=== PATIENT | male | born 1960 | race Caucasian/White ===

== ENCOUNTER 2024-11-22 09:15 | Emergency (ER) | payer MEDICARE, OTHER, SELFPAY ==
[2024-11-22 09:20] VITALS: BP 177/93
[2024-11-22 10:00] VITALS: BP 191/90
--- NOTE | 2024-11-22 10:16 | ED.GENMED ---
History of Present Illness
General
Chief Complaint: Skin Problem
Source: patient
Exam Limitations: none
Time Seen by Provider: 11/22/24 10:09
History of Present Illness
History of Present Illness:
See MDM
Past History
Past History
ED Past Medical History: HTN and IDDM
ED Past Surgical History: None
Social History
Tobacco: Non-smoker
Alcohol: None
Phy Exam
Physical Exam
Physical Exam:
See MDM
Course
Orders/Labs/Results
Orders:
Orders
11/22/24 10:14
CT Lower Ext W/o Iv Cont Lt Urgent
Comment: possible foreign body to fat pad of 3rd MTP
Reason For Exam: distal left foot swelling and pain
11/22/24 10:16
Morphine Sulfate 4 mg IV NOW STA
11/22/24 10:25
Complete Blood Count/With Diff Urgent
Comprehensive Metabolic Panel Urgent
11/22/24 10:29
Clindamycin 600 mg/50 ml [Cleocin] 600 mg in 50 ml IV NOW
Abnormal Lab Results
11/22/24
10:25
WBC 11.9 H 10^3/uL
(4.8-10.8)
MCH 33.3 H pg
(27.0-31.0)
Abs Immat Gran (auto) 0.1 H 10^3/uL
(0-0.05)
Absolute Neuts (auto) 9.0 H 10^3/uL
(1.4-6.5)
Absolute Monos (auto) 1.4 H 10^3/uL
(0.1-0.6)
Immature Gran % 0.7 H %
(0-0.5)
Neutrophils % 75.5 H %
(42.2-75.2)
Lymphocytes % 11.4 L %
(20.5-51.1)
Monocytes % 11.3 H %
(1.7-9.3)
Glucose 331 H mg/dl
(70-99)
Total Bilirubin 1.5 H mg/dl
(0.2-1.3)
11/22/24 10:25
11/22/24 10:25
Vital Signs
Initial and Last Documented VS:
Initial Vital Signs
Temp Pulse Resp BP Pulse Ox
99 F 80 16 177/93 99
11/22/24 09:20 11/22/24 09:20 11/22/24 09:20 11/22/24 09:20 11/22/24 09:20
Last Documented Vital Signs
Temp Pulse Resp BP Pulse Ox
99 F 81 16 181/94 99
11/22/24 09:20 11/22/24 11:29 11/22/24 11:29 11/22/24 11:29 11/22/24 09:20
Procedures
Foreign Body Removal-Skin
Wound explored and foreign body removed?: Yes
Anesthesia: local and 1%lidocaine w/epinephrine
Foreign body removed using: forceps
Foreign body removed: completely
MDM/Problems Addressed
Differential Diagnosis Includes:
HPI and MDM Narrative:
64-year-old male presenting with left foot pain and swelling. This has been ongoing for the past several days. He is coming from the [place]. He went to urgent care a few days ago and was told to go to the emergency department for admission.
He refused. He came to [place] instead. On exam, patient has significant swelling and tenderness to the fat pad of his left foot around the third MTP. He has dorsal erythema noted. The area is exquisitely tender. Patient already refusing
admission. His is at bedside. They both acknowledged the risks of being discharged. He understands that this could lead to irreparable damage and possible .
Will obtain CT of the left foot to look for foreign body. Will start IV clindamycin
Physical exam
General: Mildly uncomfortable
HEENT: protecting airway
Neck: appears supple
CV: No evidence of cyanosis
Resp: No accessory muscle use
Abd: Non-distended
Extremities: Left foot erythematous and edematous. Distal extremity neurovascular intact. Swelling and tenderness noted to fat pad of left third MTP
Neuro: alert
Psych: Normal affect
Skin: Intact
Problems Addressed including Acute and Chronic Conditions affecting care:
1. Left foot infection
Acuity: acute
Prognosis: unstable
Details: Will start IV antibiotics and obtain CT looking for evidence of foreign body
Updates
CT is concerning for foreign body. After numb the area, I did remove an intact thin piece of metal. This correlates to the foreign body I saw on CT. No drainage of pus. CT does not show abscess either. I again discussed admitting for IV
antibiotics and patient understands risks which include sepsis, losing his foot and possibly
In regards to his uncontrolled diabetes, they are currently moving between houses and is glucometers is packed up. Discussed better blood pressure
Differential Diagnosis (but not limited to): Cellulitis, gout, foreign body
Testing considered: X-ray but this will miss organic material
Drug therapy (if applicable): OTC meds, please see d/c instruction regarding Rx drugs
Amount and/or Complexity of Data Reviewed
Clinical info obtained from: Patient
External data reviewed: N/A
Labs I independently reviewed (but not limited to): Leukocytosis
Radiology: The CT scan was personally and independently reviewed. In addition, official CT report reviewed.
Pulse Ox: not hypoxic
EKG independently reviewed: N/A
Coder: N/A
Critical Care: N/A
Risk of Complication:
Social Determinants of health: Good social support
Discussed with other providers: N/A
Escalation of Care includes Admit/Obs: After being observed in the Emergency Department, pt stable for discharge.
Occasional wrong word or 'sound a like' substitutions may have occurred due to the inherent limitations of voice recognition software. Read the chart carefully and recognize, using context, where substitutions have occurred.
*Critical Care Note
Total Time (30-74mins, 75-104mins- exclusive of procedures): Not Applicable
ED Attending Note
-
Portions of this chart may have been created with voice recognition software.� Occasional wrong word or��sound alike� substitutions may have occurred due to the inherent limitations of voice recognition software.
Discharge Plan
Departure
Patient Disposition: Home (Routine Discharge)
Date of Disposition: 11/22/24
Time of Disposition: 11:50
Patient with high blood pressure during this ER visit?: Yes
Discharge Problem:
Foreign body in foot, left, Cellulitis of foot, Acute hyperglycemia
Instructions: Cellulitis (Skin Infection), Adult (DC)
Prescriptions:
New
sulfamethoxazole-trimethoprim [Bactrim DS] 800-160 mg tablet
1 tab PO BID 10 Days Qty: 20 0RF
cephalexin 500 mg capsule
500 mg PO BID 10 Days Qty: 20 0RF
No Action
atenolol 100 mg Tablet
100 mg PO DAILY
Humalog U-100 Insulin 100 unit/mL Cartridge
1 sliding scale dose SC DIRECTED
insulin degludec [Tresiba U-100 Insulin] 100 unit/mL Solution
30 unit SC DAILY
insulin degludec [Tresiba U-100 Insulin] 100 unit/mL Solution
50 unit SC HS
Mounjaro 2.5 mg/0.5 mL Pen Injector
2.5 mg SC QWEEK
Rx Instructions:
for 4 weeks
Activity Restrictions/Additional Instructions:
As we discussed, I think going home is a bad idea. I do suggest that you stay overnight for IV antibiotics.
Watch for worsening signs of infection: fever over 100.5', increasing pain, red streaks around wound, swelling, or increasing drainage of pus. If any of these happen, return to ED promptly. Make sure that you take all your antibiotics as directed
and finish your prescription even if you feel better before the bottle is empty
Interventions
Interventions:
*Risk Screen - Suicide Last Done: 11/22/24 09:20
*General Assessment Last Done: 11/22/24 10:30
*Neglect/Abuse Screening Last Done: 11/22/24 09:20
*ED- Fall Risk Assessment Last Done: 11/22/24 10:30
*ED COVID-19 Vaccine History Last Done: 11/22/24 10:30
ED-Skin Assessment Last Done: 11/22/24 10:31
Discharge Date and Time
Print Language: MAORI
[2024-11-22 10:30] LABS: % Basophils 0.3 % (0-2); % Eosinophils 0.8 % (0-6); % Immature Granulocytes 0.7 % (0-0.5); % Lymphocytes 11.4 % (20.5-51.1); % Monocytes 11.3 % (1.7-9.3); % Neutrophils 75.5 % (42.2-75.2); Absolute Eosinophils 0.1 10^3/uL (0-0.7); Absolute Immature Granulocytes 0.1 10^3/uL (0-0.05); Absolute Lymphocytes 1.4 10^3/uL (1.2-3.4); Absolute Monocytes 1.4 10^3/uL (0.1-0.6); Hematocrit 44.3 % (39.0-52.0); Hemoglobin 16.1 g/dL (13.0-18.0); Mean Corp Hgb Conc. 36.3 g/dL (33.0-37.0); Mean Corpuscular Hgb 33.3 pg (27.0-31.0); Mean Corpuscular Volume 91.5 fL (80.0-94.0); Mean Platelet Volume 9.9 fL (7.4-10.4); Nucleated Red Blood Cells % 0.2 % (-); Platelet Count 202 10^3/uL (130-400); Red Blood Cell Count 4.84 10^6/uL (4.70-6.10); Red Cell Dist. Width 12.7 % (11.5-14.5); White Blood Cell Count 11.9 10^3/uL (4.8-10.8)
[2024-11-22 10:56] LABS: ALT (SGPT) 22 U/L (0-50); AST (SGOT) 22 U/L (17-59); Albumin 3.7 g/dl (3.5-5.0); Alkaline Phosphatase 68 U/L (38-126); Blood Urea Nitrogen 20 mg/dl (9-20); Calcium 8.7 mg/dl (8.4-10.2); Carbon Dioxide 26 mmol/L (22-30); Chloride 105 mmol/L (98-107); Estimated Creatinine Clearance 115 ml/min; Glucose 331 mg/dl (70-99); Potassium 4.5 mmol/L (3.5-5.1); Sodium 140 mmol/L (135-145); Total Bilirubin 1.5 mg/dl (0.2-1.3); Total Protein 6.5 g/dl (6.3-8.2); eGFR > 60.00
[2024-11-22] MEDS: MORPHINE SULFATE 4 MG IV (10:56)
[2024-11-22] MEDS: CLEOCIN 50 IV (10:57)
[2024-11-22 11:29] VITALS: BP 181/94
== END 2024-11-22 12:15 | disposition home or self-care (01) ==
LOC: EMR 09:15
PROVIDERS: EMERGENCY PHYSICIAN Student in an Organized Health Care Education/Training Program
DX: S90.852A Superficial foreign body, left foot, initial encounter (principal); L03.116 Cellulitis of left lower limb; W45.8XXA Other foreign body or object entering through skin, initial encounter; I10 Essential (primary) hypertension; E11.65 Type 2 diabetes mellitus with hyperglycemia; Z79.4 Long term (current) use of insulin
CPT/HCPCS: 96365; 96375; 99284; 73700; 80053; 85025

== ENCOUNTER 2024-11-27 12:48 | Inpatient (IN) | payer MEDICARE, OTHER, SELFPAY ==
[2024-11-27] VITALS (13 sets, daily range): BP systolic 110–175; BP diastolic 72–106; BMI 32.9; BMI 31.9
--- NOTE | 2024-11-27 10:28 | ED.GENMED ---
History of Present Illness
<Kemi Levin PA-C - Last Filed: 11/27/24 12:07>
General
Chief Complaint: Skin Problem
Source: patient, records and spouse
Exam Limitations: none
Time Seen by Provider: 11/27/24 10:13
History of Present Illness
History of Present Illness:
64yoM with a history of insulin dependent diabetes (A1c last month was 8) and hypertension presenting with his for evaluation of left foot pain and swelling. [place] and believes he got a foreign body stuck
in his foot wall walking at the beach. He developed pain, redness, and swelling to the left foot last week and was seen in the ED on 11/22/2024. CT scan of the foot showed a 5 mm in length metallic needlelike foreign body in the plantar soft
tissues of the left forefoot. This foreign body was removed at that visit. Patient refused admission and was started on a course of Keflex and Bactrim. He is presenting with persistent symptoms. He states the redness on the dorsum of his foot
seems better but the swelling at the plantar surface of his foot is worsening and now spreading to his toes. He had fevers up to 101 earlier in the week but has not had a fever in the last few days.
Past History
<Kemi Levin PA-C - Last Filed: 11/27/24 12:07>
Past History
ED Past Medical History: HTN and IDDM
ED Past Surgical History: None
Social History
Tobacco: Non-smoker
Alcohol: None
Phy Exam
<Kemi Levin PA-C - Last Filed: 11/27/24 12:07>
General Physical Exam
General Presentation: well appearing and no apparent distress
General Skin: warm and dry
General Habitus: normal
General Mental: alert
ENT Exam
ENT Exam: normocephalic
Pulmonary Exam
Pulmonary Exam: no respiratory distress
Neurological Exam
Neurological Exam: alert
[place] Coma Scale
Eye Opening: Spontaneous
Verbal Response: Oriented
Motor Response: Obeys Commands
GCS Total Score: 15
Skin Exam
Skin Exam: warm/dry and other (L foot: There is what appears to be an abscess on the plantar surface of the foot which is extending to the 3rd-4th toe. Small amount of serous drainage at the dorsal surface of the toes. +Fluctuance and tenderness. No
crepitus or pain out of proportion. 2+ DP pulse.)
Psychiatric Exam
Psychiatric Exam: normal mood/affect
Course
Jordinlt;Kemi Levin PA-C - Last Filed: 11/27/24 12:07>
Orders/Labs/Results
Orders:
Orders
11/27/24 10:26
Cefepime HCl [Maxipime] 2,000 mg IV NOW STA
11/27/24 10:35
Lactate Level [Lactic Acid] Urgent
Wound Culture [Wound/Abscess/Other Culture] Urgent
DENAE Source: Foot
Specimen Description: Left
Date Specimen was Collected: 11/27/24
Time Specimen was Collected: 10:27
11/27/24 10:36
CRP [C-Reactive Protein] Urgent
Complete Blood Count/With Diff Urgent
Comprehensive Metabolic Panel Urgent
ESR [Erythrocyte Sed Rate] Urgent
Blood Culture Q30M
DENAE Source: Blood/Venous
Specimen Description:
11/27/24 10:39
Vancomycin [Vancocin] 2,000 mg 0.9% Sodium Chloride 500 ml [Nss] 500 ml IV NOW
11/27/24 10:43
Morphine Sulfate 4 mg IV NOW STA
11/27/24 10:56
Blood Culture Q30M
DENAE Source: Blood/Venous
Specimen Description:
11/27/24 11:58
Consult Podiatry [PODIATRY CONSULT] Routine
Consulting Provider: Chel Ariza
Was physician already notified: Yes
Abnormal Lab Results
11/27/24
10:36
MCH 32.7 H pg
(27.0-31.0)
Abs Immat Gran (auto) 0.2 H 10^3/uL
(0-0.05)
Immature Gran % 1.9 H %
(0-0.5)
Potassium 5.3 H mmol/L
(3.5-5.1)
BUN 21 H mg/dl
(9-20)
Glucose 278 H mg/dl
(70-99)
C-Reactive Protein 65.70 H mg/L
(0.0-10.00)
11/27/24 10:36
11/27/24 10:36
Vital Signs
Initial and Last Documented VS:
Initial Vital Signs
Temp Pulse Resp BP Pulse Ox
98.3 F 73 16 172/89 98
11/27/24 09:00 11/27/24 09:00 11/27/24 09:00 11/27/24 09:00 11/27/24 09:00
Last Documented Vital Signs
Temp Pulse Resp BP Pulse Ox
98.3 F 73 16 175/90 99
11/27/24 09:00 11/27/24 09:00 11/27/24 09:00 11/27/24 11:00 11/27/24 11:00
<Jaun Frias, DO - Last Filed: 11/27/24 10:36>
Orders/Labs/Results
Orders:
Orders
11/27/24 10:26
Cefepime HCl [Maxipime] 2,000 mg IV NOW STA
11/27/24 10:35
Lactate Level [Lactic Acid] Urgent
Wound Culture [Wound/Abscess/Other Culture] Urgent
DENAE Source: Foot
Specimen Description: Left
Date Specimen was Collected: 11/27/24
Time Specimen was Collected: 10:27
11/27/24 10:36
CRP [C-Reactive Protein] Urgent
Complete Blood Count/With Diff Urgent
Comprehensive Metabolic Panel Urgent
ESR [Erythrocyte Sed Rate] Urgent
Blood Culture Q30M
DENAE Source: Blood/Venous
Specimen Description:
11/27/24 10:39
Vancomycin [Vancocin] 2,000 mg 0.9% Sodium Chloride 500 ml [Nss] 500 ml IV NOW
11/27/24 10:43
Morphine Sulfate 4 mg IV NOW STA
11/27/24 10:56
Blood Culture Q30M
DENAE Source: Blood/Venous
Specimen Description:
11/27/24 11:58
Consult Podiatry [PODIATRY CONSULT] Routine
Consulting Provider: Chel Ariza
Was physician already notified: Yes
Abnormal Lab Results
11/27/24
10:36
MCH 32.7 H pg
(27.0-31.0)
Abs Immat Gran (auto) 0.2 H 10^3/uL
(0-0.05)
Immature Gran % 1.9 H %
(0-0.5)
Potassium 5.3 H mmol/L
(3.5-5.1)
BUN 21 H mg/dl
(9-20)
Glucose 278 H mg/dl
(70-99)
C-Reactive Protein 65.70 H mg/L
(0.0-10.00)
11/27/24 10:36
11/27/24 10:36
Vital Signs
Initial and Last Documented VS:
Initial Vital Signs
Temp Pulse Resp BP Pulse Ox
98.3 F 73 16 172/89 98
11/27/24 09:00 11/27/24 09:00 11/27/24 09:00 11/27/24 09:00 11/27/24 09:00
Last Documented Vital Signs
Temp Pulse Resp BP Pulse Ox
98.3 F 73 16 175/90 99
11/27/24 09:00 11/27/24 09:00 11/27/24 09:00 11/27/24 11:00 11/27/24 11:00
<Kemi Levin PA-C - Last Filed: 11/27/24 12:07>
MDM/Problems Addressed
Differential Diagnosis Includes:
64yoM here with a L foot infection. Seen in the ED 5 days ago for a foreign body which was removed. Currently on Keflex/Bactrim. Here with persistent symptoms. He is hypertensive with otherwise stable vitals. He is non-toxic appearing. On exam,
there is fluctuance and discoloration to the plantar surface of the foot extending anteriorly to the 3rd-4th toe. No crepitus or pain out of proportion. Differential diagnosis includes but is not limited to: Cellulitis, abscess, diabetic foot
infection, doubt NSTI
Initial ED plan: Check septic workup including blood cultures, wound culture, ESR/CRP. Will defer repeat imaging in ED as he had a CT scan 5 days ago and may need MRI.
<Kemi Levin PA-C - Last Filed: 11/27/24 12:07>
*Critical Care Note
Total Time (30-74mins, 75-104mins- exclusive of procedures): Not Applicable
<Kemi Levin PA-C - Last Filed: 11/27/24 12:07>
Update Note
Update Note:
White count and lactate within normal limits. CRP elevated at 65. IV cefepime and vancomycin ordered. Podiatry notified and patient admitted for further management.
ED Attending Note
<Kemi Levin PA-C - Last Filed: 11/27/24 12:07>
-
Portions of this chart may have been created with voice recognition software.� Occasional wrong word or��sound alike� substitutions may have occurred due to the inherent limitations of voice recognition software.
<Jaun Frias DO - Last Filed: 11/27/24 10:36>
ED Attending Note
Patient seen and examined by attending physician: Yes
I performed the substantive portion of visit, reviewed & personally made and approve the management plan that is documented in note by myself or NATALIA.: Yes
ED Attending Note:
Seen with PA examined independently prior records noted diabetic foot infection with foreign body imaged on prior visit removed in its entirety per the ER note, recommended admission patient refused, patient presents with increased cellulitic
changes, at this point strongly believe he needs to be admitted, will start antibiotics, suspect he will require some drainage procedure
Discharge Plan
Departure
Patient Disposition: Admit
Date of Disposition: 11/27/24
Time of Disposition: 11:34
Presentation/result/management discussed w/ accepting MD/DO: Hospitalist
Discharge Problem:
Diabetic infection of left foot
Prescriptions:
No Action
atenolol 100 mg Tablet
100 mg PO DAILY
Humalog U-100 Insulin 100 unit/mL Cartridge
30 sliding scale dose SC BIDWMEAL
insulin degludec [Tresiba U-100 Insulin] 100 unit/mL Solution
35 unit SC DAILY
insulin degludec [Tresiba U-100 Insulin] 100 unit/mL Solution
50 unit SC QPM
Mounjaro 2.5 mg/0.5 mL Pen Injector
2.5 mg SC FONG
Rx Instructions:
for 4 weeks
sulfamethoxazole-trimethoprim [Bactrim DS] 800-160 mg tablet
1 tab PO BID 10 Days Qty: 20 0RF
Rx Instructions:
for 10 days starting 11/22/24
cephalexin 500 mg capsule
500 mg PO BID 10 Days Qty: 20 0RF
Rx Instructions:
for 10 days starting 11/22/24
acetaminophen [Tylenol] 325 mg Tablet
650 mg PO Q6HPRN PRN (Reason: mild pain)
Theragen Tablet
1 tab PO DAILY
Referrals:
NONE,* [Family Provider] -
Interventions
Interventions:
*Risk Screen - Suicide Last Done: 11/27/24 09:00
*General Assessment Last Done: 11/27/24 10:26
*Neglect/Abuse Screening Last Done: 11/27/24 09:00
*ED- Fall Risk Assessment Last Done: 11/27/24 10:26
*ED COVID-19 Vaccine History Last Done: 11/27/24 10:26
ED-Skin Assessment Last Done: 11/27/24 11:23
Discharge Date and Time
Print Language: FAROESE
[2024-11-27] MEDS: MORPHINE SULFATE 4 MG IV (10:47)
[2024-11-27 10:50] LABS: % Basophils 0.7 % (0-2); % Eosinophils 1.5 % (0-6); % Immature Granulocytes 1.9 % (0-0.5); % Lymphocytes 22.3 % (20.5-51.1); % Monocytes 5.8 % (1.7-9.3); % Neutrophils 67.8 % (42.2-75.2); Absolute Basophils 0.1 10^3/uL (0-0.2); Absolute Eosinophils 0.1 10^3/uL (0-0.7); Absolute Immature Granulocytes 0.2 10^3/uL (0-0.05); Absolute Lymphocytes 1.9 10^3/uL (1.2-3.4); Absolute Monocytes 0.5 10^3/uL (0.1-0.6); Absolute Neutrophils 5.7 10^3/uL (1.4-6.5); Hematocrit 44.5 % (39.0-52.0); Mean Corpuscular Hgb 32.7 pg (27.0-31.0); Mean Corpuscular Volume 90.8 fL (80.0-94.0); Mean Platelet Volume 9.6 fL (7.4-10.4); Nucleated Red Blood Cells % 0 % (-); Platelet Count 295 10^3/uL (130-400); Red Cell Dist. Width 12.8 % (11.5-14.5); White Blood Cell Count 8.4 10^3/uL (4.8-10.8)
[2024-11-27] MEDS: MAXIPIME 2000 MG IV (10:58)
[2024-11-27 11:07] LABS: ALT (SGPT) 47 U/L (0-50); AST (SGOT) 51 U/L (17-59); Albumin 3.9 g/dl (3.5-5.0); Alkaline Phosphatase 85 U/L (38-126); Blood Urea Nitrogen 21 mg/dl (9-20); Calcium 9.3 mg/dl (8.4-10.2); Carbon Dioxide 26 mmol/L (22-30); Chloride 103 mmol/L (98-107); Estimated Creatinine Clearance 102 ml/min; Glucose 278 mg/dl (70-99); Potassium 5.3 mmol/L (3.5-5.1); Sodium 138 mmol/L (135-145); Total Bilirubin 0.9 mg/dl (0.2-1.3); Total Protein 6.9 g/dl (6.3-8.2); eGFR > 60.00
[2024-11-27 11:12] LABS: Lactic Acid 1.5 mmol/L (0.7-2.0)
[2024-11-27] MEDS: VANCOCIN 540 MG IV (11:12)
--- NOTE | 2024-11-27 12:05 | HPS.HSE ---
Family Physician
-
Family Physician: * NONE
Chief Complaint
-
left foot wound infection
History of Present Illness
64yoM with a history of insulin dependent diabetes and hypertension presenting with his for evaluation of left foot pain and swelling. [place] was [place] his [place] house about [place] days ago and believes he got a foreign body stuck in his foot wall
walking at the beach. He developed pain, redness, and swelling to the left foot last week and was seen in the ED on 11/22/2024. CT scan of the foot showed a 5 mm in length metallic needlelike foreign body in the plantar soft tissues of the left
forefoot. This foreign body was removed at that visit. Patient refused admission and was started on a course of Keflex and Bactrim. patient stated he had a temp of 101 before Saturday. redness, swelling and pain got worse despite on oral abx.
denied BEAULIEU,dizzy or syncope. denied chills, chest pain, sob. denied abdominal pain,n,v,d. denied dysuria or hematuria. He is presenting with persistent symptoms.
Patient received Vanco, cefepime, morphine in the ER. Blood cultures and wound culture sent from
Medical History
Past Medical History
Past Medical History: Reports Other
Additional Past Medical History:
DM
HTN
Past Surgical History: Reports None
Social History
Tobacco: Non-smoker
Drug: None
Personal:
Living: With Family
Family History
Family History: Not pertinent
Allergies / Home Medications
Allergies reflects when Allergies were last updated in [employer].
Home Medications with original date entered in [employer]
Allergy/Medication List:
Allergies
Allergy/AdvReac Type Severity Reaction Status Date / Time
No Known Allergies Allergy Verified 11/27/24 09:00
Home Medications
atenolol 100 mg tablet 100 mg PO DAILY 11/22/24
cephalexin 500 mg capsule 500 mg PO BID 10 days #20 caps 11/22/24
insulin degludec 100 unit/mL subcutaneous solution (Tresiba U-100 Insulin) 35 unit SC DAILY 11/22/24
insulin degludec 100 unit/mL subcutaneous solution (Tresiba U-100 Insulin) 50 unit SC QPM 11/22/24
insulin lispro 100 unit/mL subcutaneous cartridge (Humalog U-100 Insulin) 30 sliding scale dose SC BIDWMEAL 11/22/24
sulfamethoxazole 800 mg-trimethoprim 160 mg tablet (Bactrim DS) 1 tab PO BID 10 days #20 tabs 11/22/24
tirzepatide 2.5 mg/0.5 mL subcutaneous pen injector (Mounjaro) 2.5 mg SC FONG 11/22/24
acetaminophen 325 mg tablet (Tylenol) 650 mg PO Q6HPRN PRN mild pain 11/27/24
therapeutic multivitamin 1 tab PO DAILY 11/27/24
Review of Systems
-
Constitutional: Reports No Symptoms
EENT: Reports No Symptoms
Respiratory: Reports No Symptoms
Cardiac: Reports No Symptoms
Abdomen/GI: Reports No Symptoms
: Reports No Symptoms
Musculoskeletal: Reports No Symptoms
Skin: Reports Other ( foot: There is what appears to be an abscess on the plantar surface of the foot which is extending to the 3rd-4th toe. Small amount of serous drainage at the dorsal surface of the toes)
Neurological: Reports No Symptoms
Endocrine: Reports No Symptoms
Hematologic/Lymphatic: Reports No Symptoms
Psych: Reports No Symptoms
Physical Exam
Vital Signs
Vital Signs
Temp Pulse Resp BP Pulse Ox
98.3 F 73 16 175/90 99
11/27/24 09:00 11/27/24 09:00 11/27/24 09:00 11/27/24 11:00 11/27/24 11:00
Physical Exam
General: Well Developed, Well Nourished and No Apparent Distress
HEENT: NormoCephalic, Moist mucous membranes and Atraumatic
Respiratory: Clear
Cardiac: S1/S2 and Regular Rhythm; No Murmur or Rub
GI: Soft, Non Tender, Non Distended and Normal Bowel Sounds; No Organomegaly
Rectal: Deferred by Provider
Musculoskeletal: No Clubbing, No Cyanosis and No Edema
Skin: Rash and Other ( abscess on the plantar surface of the foot which is extending to the 3rd-4th toe. Small amount of serous drainage at the dorsal surface of the toes)
Neuro: AO x 3 and Nonfocal/grossly intact
Psych: Calm
Laboratory Results
-
11/27/24 10:36
11/27/24 10:36
Laboratory Results
Lactic Acid 1.5 mmol/L (0.7-2.0) 11/27/24 10:35
Total Bilirubin 0.9 mg/dl (0.2-1.3) 11/27/24 10:36
AST 51 U/L (17-59) 11/27/24 10:36
ALT 47 U/L (0-50) 11/27/24 10:36
Alkaline Phosphatase 85 U/L (38-126) 11/27/24 10:36
Data Reviewed
-
CT Scan: Report Reviewed by me
Lab Data: Labs Reviewed by me
Impression/Plan
-
#diabetic foot infection
-failed oral abx
- Zosyn and vanco continued
-dilaudid prn for pain
-Tylenol prn for fever and pain
-blood and wound culture sent from Er
- Lower extremity CT with impression of Left forefoot foreign body as described above. Associated severe soft tissue edema.
#IDDM with hyperglycemia
-blood sugar 278
Tresiba continued
-CHO diet
- Sliding scale
#hyperkalemia likely due to Bactrim/elevated blood sugar
- K 5.3
- Continue to monitor
# Essential hypertension
- Atenolol continued
# DVT prophylaxis
- Lovenox subcu
# CODE STATUS
- Full code
[2024-11-27 12:16] LABS: Erythrocyte Sed Rate 36 mm/hour (0-20)
--- NOTE | 2024-11-27 12:29 | W.PN.UPDATE ---
Update Note
Progress Note Update
This is an addendum to the H&P written by Antonette Mckee on 11/27/2024.� Patient seen and examined independently with PROJECT CONSTRUCTION MANAGER.
64-year-old male past medical history of diabetes, hypertension, presenting for left foot pain and swelling.� 10 days ago had foreign body stuck in his foot while walking on beach.� Came to the emergency room on 11/[address] of the foot that
showed 5 mm metallic needlelike foreign body in the plantar surface of the left forefoot which was removed.� He refused admission at that time and treated with Keflex/Bactrim.
Fever 101 earlier in the week.
Blood pressure 170s.� Afebrile here.� Labs show potassium 5.3.� Glucose of 278.� CRP of 65.
Patient with cellulitis of the foot originating from foreign body puncture site on the plantar surface of the left foot with associated serosanguineous filled fluid collection.� Wound culture pending, Blood cultures pending.� Vancomycin/Zosyn.�
Podiatry consulted for potential debridement.
Also with hyperglycemia secondary to infection.� Continue home insulin regimen with sliding scale.
Hyperkalemia secondary to Bactrim.� Stop Bactrim.
[2024-11-27] MEDS: ZOSYN 50 IV ×3 (13:31→23:25)
[2024-11-27 13:38] LABS: Glucose - Point of Care 139 mg/dl (70-99)
--- NOTE | 2024-11-27 13:41 | PHA.VAN.IN ---
Assessment
- Assessment
Renal Function: Appears similar to baseline
Concomitant Antimicrobials: piperacillin/tazobactam
AUC Dosing Plan
- Dosing Variables
Dosing Weight (kg): 104
Dosing CrCl (ml/min): 102
Vd coefficient (L/kg): 0.7
- Empiric Dosing
Initial / Loading Dose: 2000mg - 11/27 11:12
Maintenance Regimen: Vanc 1500mg Q12H starting 11/28 0600
Estimated AUC (mcg*h/mL): 494
Estimated Peak (mcg*h/mL): 31.4
Estimated Trough (mcg/ml): 12.3
Estimated Half Life (H): 7.8
- Monitoring
No levels ordered at this time: consider levels in next few days
MRSA Screen: Ordered per protocol
Pharmacokinetics Vancomycin I
- -
Patient Age: 64
Patient Sex: Male
Vancomycin Day #: 1
Indication: Skin And Soft Tissue
Requesting Provider: John Mckee
Pertinent Antimicrobial Allergies:
NKDA
Height / Weight:
Height 5 ft 11 in
Actual Weight 103.827 kg
Pertinent Past Medical History: BMI ~32, DM
- Vital Signs / Lab Results
Temp Pulse Resp BP Pulse Ox
97.8 F 72 16 172/102 98
11/27/24 13:32 11/27/24 13:32 11/27/24 13:32 11/27/24 13:32 11/27/24 13:32
Lab Results - Hematology
11/27/24
10:36
WBC 8.4
Lab Results - Chemistry
11/27/24
10:36
BUN 21 H
Creatinine 0.9
Estimated Creat Clear 102
Albumin 3.9
11/27/24
10:35
Lactic Acid 1.5
Microbiology Results
11/27/24 10:35 Gram Stain - Preliminary
Foot - Left
[2024-11-27 16:33] LABS: Glucose - Point of Care 155 mg/dl (70-99)
--- NOTE | 2024-11-27 16:34 | CM ---
Patient seen at bedside
DX: Diabetic L foot infection
He was at his beach house about 10 days ago and believes he got a foreign body stuck in his foot wall walking at the beach.
PMH: history of insulin dependent diabetes and hypertension
IA completed
Lives in a multi-story home with Arm[place], no steps to enter, flight to bedroom/bathroom
PLOF: independent, does not use assistive device
Denies DME
Denies VN/Rehab
PCP: Rubén Florian [place], [place] - [phone]
Pharmacy: [facility]
PLAN: Home, currently no needs, CM to continue to follow
[2024-11-27] MEDS: NOVOLOG FLEXPEN-LOW RESISTANCE SC (16:37)
[2024-11-27] MEDS: NOVOLOG FLEXPEN SC (16:38)
--- NOTE | 2024-11-27 16:50 | CON.MD ---
Consultation - Medical
-
Consult request 11/27/2024 @ 1157a
Requested by Hospitalist, Kemi Levin
Consult performed by Dr Chel Ariza 11/27/24 @ 3:45p
CC / HPI / ROS
-
CC: Pain left foot
HPI: This is a 64-year-old male with past medical history of diabetes, hypertension, presenting for left foot pain and swelling.� 10 days ago had foreign body stuck in his foot while walking on beach.� Came to the emergency room on 11/[address]
of the foot that showed 5 mm metallic needlelike foreign body in the plantar surface of the left forefoot which was successfully removed.� He refused admission at that time and was DC home with Keflex/Bactrim. He states over the last week pain has
worsened and he is unable to walk on his left foot. He has noted fever of 101 earlier in the week and has not been able to eat much this week.
Past Medical History
Past Medical History: Reports Other
Additional Past Medical History:
DM
HTN
Past Surgical History: Reports None
Social History
Tobacco: Non-smoker
Drug: None
+admits to ETOH
Personal:
Living: With Family
Family History
Family History: Not pertinent
Allergies / Home Medications
Allergies reflects when Allergies were last updated in [facility].
Home Medications with original date entered in [facility]
Allergy/Medication List:
Allergies
Allergy/AdvReac Type Severity Reaction Status Date / Time
No Known Allergies Allergy Verified 11/27/24 09:00
Home Medications
atenolol 100 mg tablet 100 mg PO DAILY 11/22/24
cephalexin 500 mg capsule 500 mg PO BID 10 days #20 caps 11/22/24
insulin degludec 100 unit/mL subcutaneous solution (Tresiba U-100 Insulin) 35 unit SC DAILY 11/22/24
insulin degludec 100 unit/mL subcutaneous solution (Tresiba U-100 Insulin) 50 unit SC QPM 11/22/24
insulin lispro 100 unit/mL subcutaneous cartridge (Humalog U-100 Insulin) 30 sliding scale dose SC BIDWMEAL 11/22/24
sulfamethoxazole 800 mg-trimethoprim 160 mg tablet (Bactrim DS) 1 tab PO BID 10 days #20 tabs 11/22/24
tirzepatide 2.5 mg/0.5 mL subcutaneous pen injector (Mounjaro) 2.5 mg SC FONG 11/22/24
acetaminophen 325 mg tablet (Tylenol) 650 mg PO Q6HPRN PRN mild pain 11/27/24
therapeutic multivitamin 1 tab PO DAILY 11/27/24
Review of Systems:
Constitutional: loss of apetite
EENT: Reports No Symptoms
Respiratory: Reports No Symptoms
Cardiac: Reports No Symptoms
Abdomen/GI: Reports No Symptoms
: Reports No Symptoms
Musculoskeletal: Reports No Symptoms, other than cc
Skin:Negative other than CC
Neurological: Reports No Symptoms
Endocrine: Reports No Symptoms
Hematologic/Lymphatic: Reports No Symptoms
Psych: Reports No Symptoms
Vital Signs / Labs
-
Vital Signs and Labs:
Temp Pulse Resp BP Pulse Ox
98.2 F 71 16 164/86 97
11/27/24 15:24 11/27/24 15:24 11/27/24 15:24 11/27/24 15:24 11/27/24 15:24
11/27/24 10:36
11/27/24 10:36
11/27/24 11/27/24 11/27/24
10:36 13:37 16:32
MCH 32.7 H
Abs Immat Gran (auto) 0.2 H
Immature Gran % 1.9 H
ESR 36 H
Potassium 5.3 H
BUN 21 H
Glucose 278 H
C-Reactive Protein 65.70 H
POC Glucose 139 H 155 H
No xray to compare, CT 11/22/24 demonstrates no abscess or OM, there was a metallic FB noted
Physical Exam
Vital Signs
Vital Signs
Temp Pulse Resp BP Pulse Ox
98.2 F 71 16 164/86 97
11/27/24 15:24 11/27/24 15:24 11/27/24 15:24 11/27/24 15:24 11/27/24 15:24
Physical Exam
General: Alert and awake in NAD
Other/LE focused: Decreased but palpable DPA and [employer] LLE, Intact protective sensation, Large plantar abscess to the left foot that extends from midfoot to the base of the 2nd and 3rd toes. Extreme pain and tenderness is noted to the forefoot.
Cellulitis to the left forefoot/toes
Assessemnt/Plan
-
1-DM2 with Abscess left foot - Needs urgent I&D. I incised and SHARPLY, EXCISIONALLY debrided the superficial abscess to the left forefoot to the level of the DERMIS with SCALPEL and dissecting scissors. The entrance wound of the FB is seen and
there is fullness and tenderness with extreme pain to the forefoot to the 2nd and 3rd toes and secondary wounds noted in the area of the base of the toes as result of pressure and abscess. Will add to OR schedule, NPO now.
Will obtain XRAY
2-Cellulitis left foot- IV abt, ID following
3-H/O FB -metallic left foot, he does not know tetanus status. Recommend tetanus
[2024-11-27] MEDS: LOVENOX 40 MG SC (17:46)
--- NOTE | 2024-11-27 20:30 | PTCARENOTE ---
Pt brought down for Xray of L foot and then transferred straight to OR.
--- NOTE | 2024-11-27 22:10 | W.SUR.POST ---
Surgical Immediate Post Op
Note
Pre Op Diagnosis: abscess left foot
Post Op Diagnosis:
abscess left foot
Procedure Performed:
I&D left foot
Primary Surgeon: Emmanuel
Anesthesia: IV sed w/local block 20cc 1% Lido plain and 15cc 0.5% Marcaine pl
Estimated Blood Loss: 15mL
Fluids: n/a
Drains/Shunts: n/a
Specimens/Cultures: wound cx left foot
Doppler/Duplex/Angio (Y/N): N
Complications: None
Operative Findings: SQ abscess with new wounds to the plantar lateral aspects of the left toes that track to the original entrance of the foreign body (metal) Purulence in these areas near the toes only fascia, subfascia/muscle layers explored and
noted to be without purulence
[2024-11-27 22:14] LABS: Glucose - Point of Care 106 mg/dl (70-99)
[2024-11-28] VITALS (10 sets, daily range): BP systolic 142–187; BP diastolic 66–101
[2024-11-28] MEDS: ZOSYN 50 IV ×4 (05:12→23:03)
[2024-11-28] MEDS: VANCOCIN 530 MG IV ×2 (06:00→18:03)
[2024-11-28 07:16] LABS: Blood Urea Nitrogen 18 mg/dl (9-20); Calcium 8.5 mg/dl (8.4-10.2); Carbon Dioxide 25 mmol/L (22-30); Chloride 107 mmol/L (98-107); Estimated Creatinine Clearance 100 ml/min; Glucose 142 mg/dl (70-99); Potassium 4.4 mmol/L (3.5-5.1); Sodium 140 mmol/L (135-145); eGFR > 60.00
[2024-11-28 07:38] LABS: Glucose - Point of Care 133 mg/dl (70-99)
[2024-11-28] MEDS: NOVOLOG FLEXPEN-LOW RESISTANCE SC ×3 (07:40→17:30)
[2024-11-28] MEDS: THERAGRAN 1 TABLET PO (07:43)
[2024-11-28] MEDS: TENORMIN 100 MG PO (07:43)
[2024-11-28] MEDS: LANTUS 0.3 UNITS SC (08:52)
[2024-11-28] MEDS: NOVOLOG FLEXPEN 30 UNITS SC (08:52)
--- NOTE | 2024-11-28 09:06 | PHA.VAN.FU ---
Vancomycin Assessment / Plan
- Assessment
Renal Function: Stable
WBC's are: Stable
In the past 24 hrs, patient has been: Afebrile
Concomitant Antimicrobials: pip/tazo
- Dosing Plan
Continue: vancomycin 1500 mg q12h - first dose 11/28 0600 after 2gm LD 11/27
- Monitoring Plan
No level(s) ordered at this time: consider levels when pt nears steady state
- Follow Up
Pharmacy will continue to follow.
Vancomycin Follow UP
- -
Patient Age: 64
Patient Sex: Male
Vancomycin Day #: 2
Indication: Skin And Soft Tissue
Requesting Provider: John Mckee
Pertinent Antimicrobial Allergies:
NKDA
Height / Weight:
Height 5 ft 11 in
Actual Weight 103.827 kg
Pertinent Past Medical History: BMI ~32, DM
- Vital Signs / Lab Results
Temp Pulse Resp BP Pulse Ox
98.5 F 74 18 170/95 97
11/28/24 07:05 11/28/24 07:05 11/28/24 07:05 11/28/24 07:05 11/28/24 07:05
Lab Results - Hematology
11/27/24
10:36
WBC 8.4
Lab Results - Chemistry
11/27/24 11/28/24
10:36 06:26
BUN 21 H 18
Creatinine 0.9 0.9
Estimated Creat Clear 102 100
Albumin 3.9
11/27/24
10:35
Lactic Acid 1.5
Microbiology Results
11/27/24 21:30 Fungal Culture - Preliminary
Foot - Left Culture in progress.
Positive cultures are reported as soon as detected.
Final report to follow in four to five weeks.
11/27/24 10:35 Gram Stain - Preliminary
Foot - Left
[2024-11-28 10:35] LABS: Glycohemoglobin (HgbA1c) 8.4 % (4.0-5.6)
--- NOTE | 2024-11-28 10:53 | W.PN.HOSP.TC ---
Addendum entered and electronically signed by Parish Dumont DO 11/28/24 13:46:
correction, Tdap ordered.
Original Note:
Today's Communication/Plan
-
ID consult
LIBBY/ultrasound lower extremities
Tetanus
Assessment / Plan
Assessment / Plan
Gen-AAOx3, NAD
HEENT-NC, AT, anicteric, clear oral mm
Neck-supple
CV-reg, no M, +S1/S2
Lungs-clear B/L
Abd-soft, NT, ND
Ext-no edema
Musculoskeletal-no cyanosis, clubbing
Skin-warm and dry
Neuro-grossly non-focal
Psych-calm, cooperative
Left foot abscess/diabetic infection -due to foreign body, which was removed during initial ER visit 11/22. Abscess drained by podiatry 11/27 evening. Wound culture preliminary shows Staphylococcus aureus.
On broad-spectrum antibiotics. Consult ID. Foot x-ray no longer shows foreign bodies.
DTaP ordered.
DM2 with hyperglycemia -hemoglobin A1c pending. Glucose 142 this morning. At home he takes Tresiba 30 units in the morning, 50 units in the evening. Humalog 30 units with breakfast and dinner. Also on Mounjaro 2.5 mg subcu every Saturday.
Unclear why he does not use insulin with lunch. Monitor on current regimen and can add lunchtime insulin if needed.
Hyperkalemia -present on admission, resolved.
Essential hypertension -continue atenolol.
Obesity due to excess calories
Full code
Anticipated Discharge: > 48 hours
Subjective/Interval History
-
Date of Service: November 28, 2024
Patient seen and examined. No complaints.
Objective Data
-
Labs:
Laboratory Results
11/28/24
06:26
Sodium 140
Potassium 4.4
Chloride 107
Carbon Dioxide 25
BUN 18
Creatinine 0.9
Glucose 142 H
Calcium 8.5
Vital Signs:
Vital Signs
Temp Pulse Resp BP Pulse Ox
98.5 F 74 18 170/95 97
11/28/24 07:05 11/28/24 07:05 11/28/24 07:05 11/28/24 07:05 11/28/24 07:05
I&O
11/27/24 11/28/24 11/29/24
06:59 06:59 06:59
Intake Total 720 / 720
Balance 720 / 720
Review of Systems
-
History Source: Patient
All other systems: Reviewed and negative
[2024-11-28 11:48] LABS: Glucose - Point of Care 66 mg/dl (70-99)
[2024-11-28] MEDS: ADACEL 0.5 ML IM (12:07)
[2024-11-28 12:09] LABS: Glucose - Point of Care 77 mg/dl (70-99)
--- NOTE | 2024-11-28 12:32 | CON.ID ---
Consultation
-
Date/Time Consultation Requested: 11/28/2024 1038
Date/Time Consultation Performed: 11/28/2024 1146
Requesting Provider: Dr. Dumont
Performing Provider: Dr. Navarro
Reason for Consultation: Left foot infection/abscess
Chief Complaint / Past History
History of Present Illness
Bhaskar Tanner is a 64-year-old man with a significant past medical history of DM being evaluated at the request of Dr. Dumont in regards to left foot infection. History is obtained from chart review, along with patient interview.
Patient reports that he [place] was [place], and while there he developed swelling and pain, along with erythema. He presented to the emergency room. [facility] on 11/22, and workup revealed the presence of a 5 mm foreign body
in the plantar area left foot (around the fat pad of the third MTP area). The 'needlelike' object was removed, and given the pain and swelling admission was advised which he refused. He was discharged on Bactrim and Keflex.
Despite antibiotic therapy, the foot continued to remain erythematous, with increasing pain, and the patient finally came back to the emergency room for further evaluation. At this point in time a small amount of serous drainage was noticed, and
the patient had fluctuance in ongoing tenderness. Podiatry was consulted and the patient was taken to the OR last evening for I&D. IntraOp notes indicate a subcutaneous abscess with extension to the plantar area where the foreign body was
previously removed.
The patient has been started on empiric antibiotics, and Infectious Diseases is asked to comment on further management.
Past History
Additional Past Medical History:
DM
HTN
Additional Past Surgical History:
Jaw surgery
Allergy History:
No Known Allergies Allergy (Verified 11/27/24 09:00)
Medications Reviewed: Yes
Current Antibiotics:
Vanco
Zosyn
Social History
Alcohol: Daily
Drug: None
Personal:
Living: With Family
Employment: Retired
Family History
Family History: Not Pertinent
Review of Systems
Vital Signs
Temp Pulse Resp BP Pulse Ox
98.7 F 73 18 166/87 98
11/28/24 11:05 11/28/24 11:05 11/28/24 11:05 11/28/24 11:05 11/28/24 11:05
Physical Exam
Physical Exam
Constitutional: No Acute Distress, Comfortable and Non-toxic
Eyes: No Conjunctival Hemorrhage and Sclera Anicteric
Oral: No Thrush and No Ulcers
Cardiovascular: S1/S2; Negative S3/S4
Pulmonary: Non Labored
Gastrointestinal: Soft and Non Tender
Extremities: Edema (LLE; 2+) and Erythema (LLE); Negative Calf Swelling
Wound: Other (Left foot dressed; moderate bloody strikethrough)
Neurological: Awake and Alert
Psychological: Calm
.
Lab / Diagnostic Study Results
11/27/24 10:36
11/28/24 06:26
Abs Immat Gran (auto) 0.2 10^3/uL (0-0.05) H 11/27/24 10:36
Absolute Neuts (auto) 5.7 10^3/uL (1.4-6.5) 11/27/24 10:36
Absolute Lymphs (auto) 1.9 10^3/uL (1.2-3.4) 11/27/24 10:36
Absolute Monos (auto) 0.5 10^3/uL (0.1-0.6) 11/27/24 10:36
Absolute Basos (auto) 0.1 10^3/uL (0-0.2) 11/27/24 10:36
Immature Gran % 1.9 % (0-0.5) H 11/27/24 10:36
Neutrophils % 67.8 % (42.2-75.2) 11/27/24 10:36
Lymphocytes % 22.3 % (20.5-51.1) 11/27/24 10:36
Monocytes % 5.8 % (1.7-9.3) 11/27/24 10:36
Eosinophils % 1.5 % (0-6) 11/27/24 10:36
Basophils % 0.7 % (0-2) 11/27/24 10:36
ESR 36 mm/hour (0-20) H 11/27/24 10:36
Lactic Acid 1.5 mmol/L (0.7-2.0) 11/27/24 10:35
C-Reactive Protein 65.70 mg/L (0.0-10.00) H 11/27/24 10:36
Microbiology Results
Micro:
11/27/24 10:56 Blood Culture - Preliminary
Blood/Venous No Growth in 24 hours- Final report to follow
11/27/24 10:36 Blood Culture - Preliminary
Blood/Venous No Growth in 24 hours- Final report to follow
11/27/24 10:35 Wound Culture - Preliminary
Foot - Left Staphylococcus aureus
Gram Stain - Preliminary
11/27/24 21:30 Fungal Culture - Preliminary
Foot - Left Culture in progress.
Positive cultures are reported as soon as detected.
Final report to follow in four to five weeks.
11/27/24 21:33 Wound Culture - Pending
Foot - Left Gram Stain - Pending
11/27/24 15:23 MRSA Screen - Pending
Nose
Assessment / Plan
Left foot abscess
Recent removal of left foot foreign body
DM
Elevated CRP
Hx HTN
Recommendations:
Wound cultures reveal presumptive Staph aureus, although not finalized as of yet.
Continue with empiric vancomycin and Zosyn.
Follow Vanco levels closely to prevent nephrotoxicity.
Continue with local care to the incisional area.
Lower extremity elevation to facilitate lymphatic drainage.
Monitor white count temperature curve
[2024-11-28 14:11] LABS: Glucose - Point of Care 118 mg/dl (70-99)
[2024-11-28 16:19] LABS: Glucose - Point of Care 157 mg/dl (70-99)
--- NOTE | 2024-11-28 16:27 | W.PN.POD ---
Today's Communication
Today's Communication
Abscess left foot S/P I&D -POD #1, packin removed from plantar wounds- there is bloody drainage only, no odor or purulence. Foot redressed.
Arterial study pending.
IV abt - per ID, Cx + S. Aureus, sensitivities pending
WBAT in forefoot offloaded shoe
Will follow until DC
Assessment / Plan
-
DM2 with history of hyperglycemia
DM2 with diabetic foot infection
H/O Foreign body left foot
Abscess left foot S/P I&D -POD #1
Subjective
Chief Complaint
Diabetic foot infection left foot POD #1 S/P I&D
Subjective
Pt states foot wrapping machine tender to walk on, feels swollen. Denies F/C/N/V or malaise
Objective
Temp Pulse Resp BP Pulse Ox
98.1 F 73 18 166/82 98
11/28/24 15:05 11/28/24 15:05 11/28/24 15:05 11/28/24 15:05 11/28/24 15:05
11/27/24 10:36
11/28/24 06:26
Vital Signs and Lab results were reviewed.
Inspection: Cellulitis (improved to toes and forefoot) and Inflammation (edema again noted in the area of the left forefoot)
Review of Systems
Review of Systems
Review of Systems: No Fever, No Chills, No Nausea, No Diarrhea and No Skin Rash
Physical Exam
Physical Exam
General: No Apparent Distress, Comfortable and Conversant
Musculoskeletal: No Clubbing, Cyanosis (mildly violaceous to the forefoot surrounding incision), Edema, Right Lower Extrem (+1) and Edema, Left Lower Extrem (+1)
Skin: Warm, Dry, Wound (small open wounds x 3, no odor or drainage, no purulence. ) and Other (plantar incion is C/D/I)
Neuro: AO x 3 and Protective Sensation Intact
Vascular: Capillary Refill Delayed and Skin Temperature Warm to Cool
Dorsalis Pedis: Diminished
Posterior Tibialis: Diminished
[2024-11-28] MEDS: LOVENOX 40 MG SC (17:20)
[2024-11-28 17:29] LABS: Glucose - Point of Care 95 mg/dl (70-99)
[2024-11-28] MEDS: NOVOLOG FLEXPEN 10 UNITS SC (19:12)
[2024-11-28 22:09] LABS: Glucose - Point of Care 145 mg/dl (70-99)
[2024-11-29 03:09] LABS: Glucose - Point of Care 140 mg/dl (70-99)
[2024-11-29] MEDS: ZOSYN 50 IV ×2 (05:07→11:45)
[2024-11-29] MEDS: VANCOCIN 530 MG IV (06:01)
[2024-11-29 07:00] VITALS: BP 180/87
[2024-11-29 07:10] LABS: Glucose - Point of Care 154 mg/dl (70-99)
[2024-11-29 07:27] LABS: Blood Urea Nitrogen 13 mg/dl (9-20); Calcium 8.9 mg/dl (8.4-10.2); Carbon Dioxide 27 mmol/L (22-30); Chloride 106 mmol/L (98-107); Estimated Creatinine Clearance 100 ml/min; Glucose 137 mg/dl (70-99); Potassium 4.4 mmol/L (3.5-5.1); Sodium 141 mmol/L (135-145); eGFR > 60.00
[2024-11-29] MEDS: TENORMIN 100 MG PO (08:02)
[2024-11-29] MEDS: THERAGRAN 1 TABLET PO (08:02)
--- NOTE | 2024-11-29 08:41 | CM ---
Addendum entered by Amanda Khan 11/29/24 13:03:
CM consult complete-substance abuse counseling
Patient declines [facility] resources
Original Note:
Spoke with patient & Dr. Ariza
Abscess left foot S/P I&D -POD #1
WBAT in forefoot offloaded shoe
Discussed home health - declines
Plan: Home, declined home health
--- NOTE | 2024-11-29 08:47 | PHA.VAN.FU ---
Vancomycin Assessment / Plan
- Assessment
Renal Function: Stable
In the past 24 hrs, patient has been: Afebrile
Concomitant Antimicrobials: pip/tazo
- Dosing Plan
Continue: vancomycin 1500 mg q12h - started 11/28 06
- Monitoring Plan
Peak Level: 11/29 2100 - after 5th total dose ( 4th maint dose)
Trough Level: 11/30 0530
- Follow Up
Pharmacy will continue to follow.
Vancomycin Follow UP
- -
Patient Age: 64
Patient Sex: Male
Vancomycin Day #: 3
Indication: Skin And Soft Tissue
Requesting Provider: John Mckee
Pertinent Antimicrobial Allergies:
NKDA
Height / Weight:
Height 5 ft 11 in
Actual Weight 103.827 kg
Pertinent Past Medical History: BMI ~32, DM; s/p I and D left abscess L foot
- Vital Signs / Lab Results
Temp Pulse Resp BP Pulse Ox
98.4 F 72 18 180/87 97
11/29/24 07:00 11/29/24 07:00 11/29/24 07:00 11/29/24 07:00 11/29/24 07:00
Lab Results - Hematology
11/27/24
10:36
WBC 8.4
Lab Results - Chemistry
11/27/24 11/28/24 11/29/24
10:36 06:26 06:20
BUN 21 H 18 13
Creatinine 0.9 0.9 0.9
Estimated Creat Clear 102 100 100
Albumin 3.9
11/27/24
10:35
Lactic Acid 1.5
Microbiology Results
11/27/24 21:33 Gram Stain - Preliminary
Foot - Left
11/27/24 10:56 Blood Culture - Preliminary
Blood/Venous No Growth in 24 hours- Final report to follow
11/27/24 10:36 Blood Culture - Preliminary
Blood/Venous No Growth in 24 hours- Final report to follow
11/27/24 10:35 Wound Culture - Preliminary
Foot - Left Staphylococcus aureus
Gram Stain - Preliminary
11/27/24 21:30 Fungal Culture - Preliminary
Foot - Left Culture in progress.
Positive cultures are reported as soon as detected.
Final report to follow in four to five weeks.
[2024-11-29] MEDS: LANTUS 0.3 UNITS SC (09:10)
[2024-11-29] MEDS: NOVOLOG FLEXPEN 10 UNITS SC ×3 (09:11→18:32)
[2024-11-29] MEDS: NOVOLOG FLEXPEN-LOW RESISTANCE 1 UNITS SC ×2 (09:11→13:27)
--- NOTE | 2024-11-29 10:51 | W.PN.HOSP.TC ---
Today's Communication/Plan
-
Add Procardia
Continue antibiotics
Await culture
PT consult
Assessment / Plan
Assessment / Plan
Gen-AAOx3, NAD
HEENT-NC, AT, anicteric, clear oral mm
Neck-supple
CV-reg, no M, +S1/S2
Lungs-clear B/L
Abd-soft, NT, ND
Ext-no edema
Musculoskeletal-no cyanosis, clubbing
Skin-warm and dry
Neuro-grossly non-focal
Psych-calm, cooperative
Left foot abscess/diabetic infection -due to foreign body, which was removed during initial ER visit 11/22. Abscess drained by podiatry 11/27 evening. Wound culture preliminary shows Staphylococcus aureus. Patient has a surgical shoe.
On broad-spectrum antibiotics. Foot x-ray no longer shows foreign bodies.
Tdap administered.
ID following.
DM2 with hyperglycemia -hemoglobin A1c 8.4%. Glucose 137 this morning. At home he takes Tresiba 30 units in the morning, 50 units in the evening. Humalog 30 units with breakfast and dinner. Also on Mounjaro 2.5 mg subcu every Saturday.
Insulin doses reduced in the hospital due to hypoglycemia. At home he requires much higher doses of insulin just to keep his glucoses under control due to his heavy drinking.
Continue Lantus 30 units daily, NovoLog 10 units AC.
Alcohol use disorder -I suspect he drinks more than he admits to. Start alcohol withdrawal protocol. Counseled patient on abstaining from further drinking but he states that he will cut down but not stop. We discussed the risks associated with
continued drinking including risk of uncontrolled diabetes.
Hyperkalemia -present on admission, resolved.
Essential hypertension -continue atenolol. Add Procardia XL 30 mg daily.
Obesity due to excess calories
Full code
Anticipated Discharge: Within 24 hours
Subjective/Interval History
-
Date of Service: November 29, 2024
Patient seen and examined. Feels good, no complaints.
Objective Data
-
Labs:
Laboratory Results
11/29/24
06:20
Sodium 141
Potassium 4.4
Chloride 106
Carbon Dioxide 27
BUN 13
Creatinine 0.9
Glucose 137 H
Calcium 8.9
Vital Signs:
Vital Signs
Temp Pulse Resp BP Pulse Ox
98.4 F 72 18 180/87 97
11/29/24 07:00 11/29/24 07:00 11/29/24 07:00 11/29/24 07:00 11/29/24 07:00
I&O
11/28/24 11/29/24 11/30/24
06:59 06:59 06:59
Intake Total 720 / 720 1540 / 1540
Balance 720 / 720 1540 / 1540
Review of Systems
-
History Source: Patient
All other systems: Reviewed and negative
[2024-11-29] MEDS: VITAMIN B1 100 MG PO (11:45)
[2024-11-29] MEDS: PROCARDIA XL (EXTENDED RELEASE) 30 MG PO (11:45)
[2024-11-29] MEDS: FOLVITE 1 MG PO (11:45)
[2024-11-29 11:52] VITALS: BP 189/98
[2024-11-29 11:56] LABS: Glucose - Point of Care 188 mg/dl (70-99)
--- NOTE | 2024-11-29 12:08 | W.PN.ID1 ---
Date of Service
Date of Service: November 29, 2024
Today's Communication
Continue antibiotics. Narrow to cefazolin.
Assessment / Plan
Left foot abscess
Recent removal of left foot foreign body
DM
Elevated CRP
Hx HTN
Recommendations:
Wound cultures with Staph aureus. Isolate is PBP2a negative
Narrowed to cefazolin 2 g IV every 8 hours.
Continue with local care to the incisional area.
Lower extremity elevation to facilitate lymphatic drainage.
Monitor white count temperature curve
����������������������������������������������������������
Chief Complaint
-: Other (Left foot abscess)
Subjective / Review of Systems
Patient seen and examined. No difficulty with antibiotics. Pain in left foot controlled.
Review of Systems: No Fever and No Chills
Vital Signs / Physical Exam
Vital Signs
Vital Signs
Temp Pulse Resp BP Pulse Ox
99.2 F 75 18 189/98 95
11/29/24 11:52 11/29/24 11:52 11/29/24 11:52 11/29/24 11:52 11/29/24 11:52
Physical Exam
Constitutional: No Acute Distress, Comfortable and Non-toxic
Eyes: Sclera Anicteric
Cardiovascular: S1/S2; Negative S3/S4
Pulmonary: Non Labored
Extremities: Edema (1+ left lower extremity) and Erythema (Diminished left lower extremity)
Skin: Warm and Dry
Wound: Other (Left foot wound dressed. Mild bloody strikethrough.)
Neurological: Awake and Alert
Psychological: Calm
Objective Data
Lab Data
Lab Results
11/27/24 10:36
11/29/24 06:20
ESR 36 mm/hour (0-20) H 11/27/24 10:36
Estimated Creat Clear 100 ml/min 11/29/24 06:20
Lactic Acid 1.5 mmol/L (0.7-2.0) 11/27/24 10:35
Total Bilirubin 0.9 mg/dl (0.2-1.3) 11/27/24 10:36
AST 51 U/L (17-59) 11/27/24 10:36
ALT 47 U/L (0-50) 11/27/24 10:36
Alkaline Phosphatase 85 U/L (38-126) 11/27/24 10:36
C-Reactive Protein 65.70 mg/L (0.0-10.00) H 11/27/24 10:36
Most recent labs reviewed.
Micro Results:
11/27/24 10:56 Blood Culture - Preliminary
Blood/Venous No Growth in 48 hours- Final report to follow
11/27/24 10:36 Blood Culture - Preliminary
Blood/Venous No Growth in 48 hours- Final report to follow
11/27/24 21:33 Wound Culture - Preliminary
Foot - Left Staphylococcus aureus
Gram Stain - Preliminary
11/27/24 15:23 MRSA Screen - Final
Nose No Methicillin Resistant Staphylococcus aureus isolated.
11/27/24 10:35 Wound Culture - Preliminary
Foot - Left Staphylococcus aureus
Gram Stain - Preliminary
11/27/24 21:30 Fungal Culture - Preliminary
Foot - Left Culture in progress.
Positive cultures are reported as soon as detected.
Final report to follow in four to five weeks.
--- NOTE | 2024-11-29 13:11 | W.PN.POD ---
Today's Communication
Today's Communication
Incision cleansed and redressed today.
Arterial study pending
Cont IV abt for now
Assessment / Plan
-
DM2 with history of hyperglycemia
DM2 with diabetic foot infection
H/O Foreign body left foot
Abscess left foot S/P I&D -POD #2
Subjective
Chief Complaint
diabetic foot infection left
Subjective
pt resting comfortably
Objective
Temp Pulse Resp BP Pulse Ox
99.2 F 75 18 189/98 95
11/29/24 11:52 11/29/24 11:52 11/29/24 11:52 11/29/24 11:52 11/29/24 11:52
11/27/24 10:36
11/29/24 06:20
Vital Signs and Lab results were reviewed.
Inspection: Cellulitis (improved, not yet resolved), Inflammation (decreased plantar left forefoot-not resolved) and Other (incision C/D/I left foot, other small wounds w/o drainage, odor or purulence and healing well. Still moderate tenderness to
the forefoot)
Review of Systems
Review of Systems
Review of Systems: No Fever, No Chills, No Headache and No Nausea
Physical Exam
Physical Exam
General: No Apparent Distress and Comfortable
Musculoskeletal: No Cyanosis and No Edema
Skin: Warm and Other (as above, resildual edema and erythema to the forefoot. pain to perincision, no drainage, incsion C/D/I)
Neuro: AO x 3 and Protective Sensation Intact
Vascular: Capillary Refill Intact
Dorsalis Pedis: Diminished
Posterior Tibialis: Diminished
[2024-11-29] MEDS: ANCEF 10 IV ×2 (14:52→21:36)
[2024-11-29 15:05] VITALS: BP 133/69
[2024-11-29 16:41] LABS: Glucose - Point of Care 125 mg/dl (70-99)
[2024-11-29] MEDS: NOVOLOG FLEXPEN-LOW RESISTANCE SC (16:51)
[2024-11-29] MEDS: LOVENOX 40 MG SC (17:45)
[2024-11-29 21:28] LABS: Glucose - Point of Care 105 mg/dl (70-99)
[2024-11-29 23:00] VITALS: BP 173/80
[2024-11-30] MEDS: ANCEF 10 IV ×2 (06:11→09:34)
--- NOTE | 2024-11-30 07:23 | WOUNDNOTE ---
WOC RN note: Confirmed with Dr. Ariza to cancel WOC RN consult. Dr. Ariza following/managing wound.
[2024-11-30 07:49] VITALS: BP 175/97
[2024-11-30 08:02] LABS: Glucose - Point of Care 132 mg/dl (70-99)
[2024-11-30 08:59] LABS: Hematocrit 43.6 % (39.0-52.0); Hemoglobin 15.5 g/dL (13.0-18.0); Mean Corp Hgb Conc. 35.6 g/dL (33.0-37.0); Mean Corpuscular Hgb 32.2 pg (27.0-31.0); Mean Corpuscular Volume 90.6 fL (80.0-94.0); Mean Platelet Volume 9.6 fL (7.4-10.4); Platelet Count 304 10^3/uL (130-400); Red Blood Cell Count 4.81 10^6/uL (4.70-6.10); Red Cell Dist. Width 12.6 % (11.5-14.5); White Blood Cell Count 7.9 10^3/uL (4.8-10.8)
[2024-11-30 09:01] LABS: Blood Urea Nitrogen 13 mg/dl (9-20); Calcium 9.1 mg/dl (8.4-10.2); Carbon Dioxide 26 mmol/L (22-30); Chloride 106 mmol/L (98-107); Estimated Creatinine Clearance > 125 ml/min; Glucose 140 mg/dl (70-99); Potassium 4.5 mmol/L (3.5-5.1); Sodium 141 mmol/L (135-145); eGFR > 60.00
[2024-11-30] MEDS: NOVOLOG FLEXPEN-LOW RESISTANCE SC (09:26)
[2024-11-30] MEDS: VITAMIN B1 100 MG PO (09:34)
[2024-11-30] MEDS: THERAGRAN 1 TABLET PO ×2 (09:34)
[2024-11-30] MEDS: PROCARDIA XL (EXTENDED RELEASE) 30 MG PO (09:34)
[2024-11-30] MEDS: LANTUS 0.3 UNITS SC (09:34)
[2024-11-30] MEDS: TENORMIN 100 MG PO (09:34)
[2024-11-30] MEDS: FOLVITE 1 MG PO (09:35)
[2024-11-30] MEDS: NOVOLOG FLEXPEN 10 UNITS SC ×2 (10:12→12:26)
[2024-11-30 12:14] LABS: Glucose - Point of Care 181 mg/dl (70-99)
[2024-11-30] MEDS: NOVOLOG FLEXPEN-LOW RESISTANCE 1 UNITS SC (12:25)
--- NOTE | 2024-11-30 12:44 | W.PN.HOSP.TC ---
Today's Communication/Plan
-
await LIBBY/TBI report; dc planning
Assessment / Plan
Assessment / Plan
Assessment:
Left foot abscess/diabetic infection - due to foreign body, which was removed during initial ER visit 11/22. Abscess drained by podiatry 11/27 evening. Wound culture preliminary shows Staphylococcus aureus. Patient has a surgical shoe.
Foot x-ray no longer shows foreign bodies.
Tdap administered.
ID following. ok to discharge on Keflex x 2 weeks
await LIBBY/TBI study
DM2 with hyperglycemia - hemoglobin A1c 8.4%. At home he takes Tresiba 30 units in the morning, 50 units in the evening. Humalog 30 units with breakfast and dinner. Also on Mounjaro 2.5 mg subcu every Saturday.
Insulin doses reduced in the hospital due to hypoglycemia. At home he requires much higher doses of insulin just to keep his glucoses under control due to his heavy drinking.
Continue Lantus 30 units daily, NovoLog 10 units AC.
Alcohol use disorder - continue alcohol withdrawal protocol. Counseled patient on abstaining from further drinking but he states that he will cut down but not stop. We discussed the risks associated with continued drinking including risk of
uncontrolled diabetes.
Hyperkalemia - present on admission, resolved.
Essential hypertension - continue atenolol. continue Procardia XL 30 mg daily.
Obesity due to excess calories
DVT ppx: Lovenox
Code: Full
Anticipated Discharge: Within 24 hours
Subjective/Interval History
-
Date of Service: November 30, 2024
resting comfortably, no complaints
Objective Data
-
Labs:
Laboratory Results
11/30/24
08:07
WBC 7.9
Hgb 15.5
Hct 43.6
Plt Count 304
Sodium 141
Potassium 4.5
Chloride 106
Carbon Dioxide 26
BUN 13
Creatinine 0.7
Glucose 140 H
Calcium 9.1
Vital Signs:
Vital Signs
Temp Pulse Resp BP Pulse Ox
98.2 F 75 16 175/97 97
11/30/24 07:49 11/30/24 07:49 11/30/24 07:49 11/30/24 07:49 11/30/24 07:49
I&O
11/29/24 11/30/24 12/01/24
06:59 06:59 06:59
Intake Total 1540 / 1540 1320 / 1320
Balance 1540 / 1540 1320 / 1320
Physical Exam
-
General: No Apparent Distress
HEENT: Normocephalic and Atraumatic
Respiratory: Negative Wheezes
Cardiac: Regular Rhythm and S1/S2
GI: Soft
Neuro: AO x 3
Psych: Calm
Data Reviewed
-
Total Time Spent with Patient (in minutes): 42
Labs: Labs Reviewed by me
--- NOTE | 2024-11-30 12:48 | W.PN.ID1 ---
Date of Service
Date of Service: November 30, 2024
Today's Communication
Continue antibiotics
Assessment / Plan
Left foot abscess 2* MSSA
Recent removal of left foot foreign body
DM
Elevated CRP
Hx HTN
Recommendations:
Wound cultures with Staph aureus (MSSA)
Continue with cefazolin 2 g IV every 8 hours while inpatient. Transition to oral keflex at D/C, to contineu through 12/10/24
Continue with local care to the incisional area.
Lower extremity elevation to facilitate lymphatic drainage.
Monitor white count temperature curve
����������������������������������������������������������
Chief Complaint
-: Other (Left foot abscess)
Subjective / Review of Systems
Review of Systems: No Fever and No Chills
Vital Signs / Physical Exam
Vital Signs
Vital Signs
Temp Pulse Resp BP Pulse Ox
98.2 F 75 16 175/97 97
11/30/24 07:49 11/30/24 07:49 11/30/24 07:49 11/30/24 07:49 11/30/24 07:49
Physical Exam
Constitutional: No Acute Distress, Comfortable and Non-toxic
Eyes: Sclera Anicteric
Pulmonary: Non Labored
Extremities: Edema (1+ left lower extremity) and Erythema (Diminished left lower extremity)
Skin: Warm and Dry
Wound: Other (Left foot plantar swelling over third metatarsal area. Sutures in place.)
Neurological: Awake, Alert and Oriented
Psychological: Calm
Objective Data
Lab Data
Lab Results
11/30/24 08:07
11/30/24 08:07
ESR 36 mm/hour (0-20) H 11/27/24 10:36
Estimated Creat Clear > 125 ml/min 11/30/24 08:07
Lactic Acid 1.5 mmol/L (0.7-2.0) 11/27/24 10:35
Total Bilirubin 0.9 mg/dl (0.2-1.3) 11/27/24 10:36
AST 51 U/L (17-59) 11/27/24 10:36
ALT 47 U/L (0-50) 11/27/24 10:36
Alkaline Phosphatase 85 U/L (38-126) 11/27/24 10:36
C-Reactive Protein 65.70 mg/L (0.0-10.00) H 11/27/24 10:36
Most recent labs reviewed.
Micro Results:
11/27/24 10:56 Blood Culture - Preliminary
Blood/Venous No Growth in 72 hours- Final report to follow
11/27/24 10:36 Blood Culture - Preliminary
Blood/Venous No Growth in 72 hours- Final report to follow
11/27/24 21:33 Wound Culture - Final
Foot - Left S aureus-Methicillin Sensitive
Gram Stain - Final
11/27/24 10:35 Wound Culture - Final
Foot - Left S aureus-Methicillin Sensitive
Gram Stain - Final
11/27/24 15:23 MRSA Screen - Final
Nose No Methicillin Resistant Staphylococcus aureus isolated.
11/27/24 21:30 Fungal Culture - Preliminary
Foot - Left Culture in progress.
Positive cultures are reported as soon as detected.
Final report to follow in four to five weeks.
[2024-11-30 13:00] VITALS: BP 146/76
--- NOTE | 2024-11-30 13:29 | CM ---
CM met with Bhaskar to complete IA. He lives with his in a 3 story home with no entry steps.
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
Pt admitted to due to concern for infected foot; he believes he stepped on something (found to be a needle) [place]
Pt provided with an offloading shoe for his L foot.
Plan: Discharge to home with no needs.
--- NOTE | 2024-11-30 14:55 | W.DS.TRANS ---
DC Summary - [employer]
-
Discharge Instructions:
Discharge Diagnosis/Procedures L foot diabetic foot infection/abscess related
to foreign body, abscess drained 11/27
Diet Diabetic, Carb Controlled
Activity As tolerated
Bathing Restrictions None
Instructions:
Stand-Alone Forms:
Changes to Home Medications: No
Discharge Medications:
DC Medications w/original date entered in [facility]
atenolol 100 mg tablet 100 mg PO DAILY Blood Pressure 11/22/24
insulin degludec 100 unit/mL subcutaneous solution (Tresiba U-100 Insulin) 30 unit SC DAILY Diabetes 11/22/24
insulin degludec 100 unit/mL subcutaneous solution (Tresiba U-100 Insulin) 50 unit SC QPM Diabetes 11/22/24
insulin lispro 100 unit/mL subcutaneous cartridge (Humalog U-100 Insulin) 30 unit SC BID@0800,1700 Diabetes 11/22/24
tirzepatide 2.5 mg/0.5 mL subcutaneous pen injector (Mounjaro) 2.5 mg SC FONG 11/22/24
acetaminophen 325 mg tablet (Tylenol) 650 mg PO Q6HPRN PRN mild pain 11/27/24
therapeutic multivitamin 1 tab PO DAILY Supplement 11/27/24
cephalexin 500 mg capsule 500 mg PO QID #44 caps 11/30/24
nifedipine 30 mg tablet,extended release 30 mg PO DAILY #30 tabs 11/30/24
Home Medication Changes
Pending Results: No
Total time spent discharging patient (in min): 41
[2024-11-30 15:14] VITALS: BP 124/76
== END 2024-11-30 16:34 | disposition home or self-care (01) | DRG 638 ==
LOC: 3 WEST ACU 12:48
PROVIDERS: Physician Assistant; Registered Nurse; ADMITTING PHYSICIAN Hospitalist; ATTENDING PHYSICIAN Internal Medicine; CONSULT PHYSICIAN Internal Medicine Infectious Disease; CONSULT PHYSICIAN Podiatrist Foot & Ankle Surgery; EMERGENCY PHYSICIAN Emergency Medicine
PROC: 0J9R0ZZ Drainage of Left Foot Subcutaneous Tissue and Fascia, Open Approach (ICD-10-PCS; 2024-11-27)
PROC: 3E0234Z Introduction of Serum, Toxoid and Vaccine into Muscle, Percutaneous Approach (ICD-10-PCS; 2024-11-30)
DX: E11.628 Type 2 diabetes mellitus with other skin complications (principal); L02.612 Cutaneous abscess of left foot; L03.116 Cellulitis of left lower limb; Z79.4 Long term (current) use of insulin; E11.65 Type 2 diabetes mellitus with hyperglycemia; E87.5 Hyperkalemia; T36.8X5A Adverse effect of other systemic antibiotics, initial encounter; I10 Essential (primary) hypertension; E66.09 Other obesity due to excess calories; Z68.31 Body mass index [BMI] 31.0-31.9, adult; F10.10 Alcohol abuse, uncomplicated; Z23 Encounter for immunization
CPT/HCPCS: 73630; 80048; 80053; 82962; 83036; 83605; 85025; 85027; 85652; 86140; 87040; 87070; 87102; 87147; 87176; 87186; 87205; 90715; 93922; 96365; 96366; 96367; 96375; 97162; 99284

== ENCOUNTER → 2025-01-08 13:16 | Outpatient (REF) | payer MEDICARE, OTHER, SELFPAY | LOC: HWRAD 13:16 | PROVIDERS: ATTENDING PHYSICIAN Podiatrist Foot & Ankle Surgery | DX: M86.172 Other acute osteomyelitis, left ankle and foot (principal) | CPT/HCPCS: 73630 ==